=== PATIENT | male | born 1990 | race Caucasian/White ===

== ENCOUNTER 2018-03-24 07:58 | Emergency (ER) | payer MEDICAID ==
[~2018-03-24] VITALS: Ht 180.3 cm; Wt 79.8 kg
[2018-03-24 07:59] VITALS: BP 134/90
--- NOTE | 2018-03-24 08:10 | NUR ---
27 yo m bib self w/ c/o leg pain x 3 weeks. pt reports that he picked something heavy up and hurt his back, since then he has had the right leg numbness/tingling, 9/10 pain. states that he cannot even sleep. pt reports ibuprofen would temporarily relieve the pain. no erythema/edema or discoloration/deformity noted at this time. vss, bed down, bedrail up x 1, er md aware and notified of pt status. hx denies rx denies
--- NOTE | 2018-03-24 08:30 | NUR ---
Patient being evaluated by physician at bedside.
[2018-03-24 08:58] VITALS: BP 131/86
--- NOTE | 2018-03-24 08:58 | NUR ---
Patient discharged with v/s stable. Written and verbal after care instructions given and explained. Patient alert, oriented and verbalized understanding of instructions. Ambulatory with steady gait. All questions addressed prior to discharge. ID band removed. Patient advised to follow up with PMD. Rx of motrin and tramadol given. Patient educated on indication of medication including possible reaction and side effects. Opportunity to ask questions provided and answered.
== END 2018-03-24 08:58 | disposition home or self-care (01) ==
LOC: MED 07:58
DX: S39.012A Strain of muscle, fascia and tendon of lower back, initial encounter (principal); M54.41 Lumbago with sciatica, right side; X50.0XXA Overexertion from strenuous movement or load, initial encounter; Y93.89 Activity, other specified; Y92.89 Other specified places as the place of occurrence of the external cause; Y99.8 Other external cause status
CPT/HCPCS: 99283

== ENCOUNTER 2023-01-16 07:28 | Emergency (ER) | payer BC, MEDICAID ==
[~2023-01-16] VITALS: Ht 175.3 cm; Wt 102.1 kg
[2023-01-16 07:39] VITALS: BP 121/88; PULSE 77; RESP 16; TEMP 97.6; O2SAT 99
[2023-01-16 08:03] VITALS: BP 136/91; PULSE 77; RESP 20; TEMP 97.6; O2SAT 99
[2023-01-16] MEDS ORDERED: ALUMINUM HYD/MAG/SIMETHICONE 30 ML UDC PO ONE (08:50)
[2023-01-16] MEDS ORDERED: FAMOTIDINE 20 MG TAB PO ONE (08:50)
[2023-01-16] MEDS ORDERED: LACTULOSE 20 GM/30 ML UDC PO ONE (08:50)
[2023-01-16 09:37] LABS: BASOPHILS % (AUTO) 0.3 % (0.0-2.0); HEMATOCRIT 41.9 % (36-52); HEMOGLOBIN 14.4 g/dL (12.0-18.0); LYMPHOCYTES # (AUTO) 0.9 K/uL (2.0-11.5); LYMPHOCYTES % (AUTO) 9.1 % (20.5-51.1); MEAN CORPUSCULAR HEMOGLOBIN 31 pg (27-31); MEAN CORPUSCULAR HGB CONC 34 g/dL (33-37); MEAN CORPUSCULAR VOLUME 91.1 fL (80-94); MONOCYTES # (AUTO) 0.7 K/uL (0.8-1.0); MONOCYTES % (AUTO) 6.6 % (1.7-9.3); NEUTROPHILS # (AUTO) 8.7 K/uL (1.8-7.7); PLATELET COUNT (AUTO) 193 K/uL (140-450); RED CELL DISTRIBUTION WIDTH 13.4 % (11.6-13.7); WHITE BLOOD COUNT (AUTO) 10.4 K/uL (4.8-10.8)
[2023-01-16 09:40] LABS: APPEARANCE,URINE CLEAR (CLEAR); BILIRUBIN,URINE NEGATIVE (NEGATIVE); BLOOD, URINE TRACE-I (NEGATIVE); COLOR,URINE YELLOW (YELLOW); LEUKOCYTE ESTERASE ,URINE NEGATIVE (NEGATIVE); NITRITE, URINE NEGATIVE (NEGATIVE); PROTEIN,URINE NEGATIVE (NEGATIVE); UGLUCOSE NEGATIVE (NEGATIVE); UROBILINOGEN,URINE 0.2 EU/dL (0.2 - 1)
[2023-01-16 09:54] LABS: ALBUMIN 3.3 g/dL (3.4-5.0); ANION GAP 14.5 (8-16); CALCIUM 8.5 mg/dL (8.5-10.1); CARBON DIOXIDE 23.5 mmol/L (21-32); CREATININE 0.9 mg/dL (0.6-1.3); TOTAL BILIRUBIN 0.4 mg/dL (0.0-1.0)
[2023-01-16 10:07] LABS: BACTERIA,URINE FEW /HPF (None Seen); MUCUS,URINE None Seen /LPF (None Seen); RBC,URINE 0-5 /HPF (0-5); SQUAMOUS EPITHELIAL CELL,UR 0-3 (FEW) /LPF (0-3 (FEW)); TRICHOMONAS,URINE None Seen /HPF (None Seen); WBC,URINE 0-5 /HPF (0-5); YEAST,URINE None Seen /HPF (None Seen)
[2023-01-16 10:08] LABS: WHITE BLOOD CELL CASTS,URINE None Seen /LPF (None Seen)
[2023-01-16] MEDS ORDERED: OMEP40EC23 PO (10:44)
[2023-01-16] MEDS ORDERED: SUCR1TAB6 PO (10:44)
== END 2023-01-16 10:52 | disposition home or self-care (01) ==
LOC: MED 07:28
DX: K59.00 Constipation, unspecified (principal); Z79.899 Other long term (current) drug therapy
CPT/HCPCS: 36415; 74022; 80053; 81001; 83690; 85025; 99284